=== PATIENT | female | born 1955 | race Caucasian/White ===

== ENCOUNTER 2023-11-18 08:54 | Outpatient (OUT) | payer MEDICARE, SELFPAY ==
--- NOTE | 2023-11-18 09:02 | XR_ITS ---
[address] [address] Patient Name: TRACY KASPER MRN: [id number] date: 1955 Sex: F Assigned Patient Location: [facility] Current Patient Location: [facility] Accession/Order Number: [id number] Exam Date: 11/18/2023 09:10 Report Date: 11/18/2023 09:45 At the request of: CHENCHO RIVERO Procedure: XR DEXA axial skeleton EXAMINATION: XR DEXA axial skeleton HISTORY: Screening For Osteoporosis Z13.820 COMPARISON: DEXA bone densitometry 03/19/2021 TECHNIQUE: Dual-energy X-ray absorptiometry (DXA) was performed. FINDINGS: SPINE ANALYSIS: Average bone mineral density is 1.10 to g/cm2. T-score (standard deviation relative to young adult mean): -0.6 . -8.1% change since prior study. HIP ANALYSIS: Lowest bone mineral density is within the left femoral trochanter, 0.645 g/cm2. T-score (standard deviation relative to young adult mean): -1.8 . -4.0% change since prior study. XR/XR DEXA axial skeleton IMPRESSION: [employer] Classification: Osteopenia - Moderate Fracture Risk Electronically authenticated by: DUTCH ISSA Date: 11/18/2023 09:45
== END 2023-11-18 08:55 | disposition home or self-care (01) ==
PROVIDERS: PCP Internal Medicine; Visit Provider Nurse Practitioner Family
DX: M81.0 Age-related osteoporosis without current pathological fracture (principal); Z13.820 Encounter for screening for osteoporosis; M85.80 Other specified disorders of bone density and structure, unspecified site
CPT/HCPCS: 77080